=== PATIENT | female | born 1990 | race Caucasian/White ===

== ENCOUNTER 2018-08-18 15:01 | Emergency (ER) | payer OTHER ==
[2018-08-18 15:37] LABS: BASOPHILS # (AUTO) 0.1 10^3/uL (0.0-0.1); BASOPHILS % (AUTO) 0.8 %; EOSINOPHILS # (AUTO) 0.2 10^3/uL (0.0-0.7); EOSINOPHILS % (AUTO) 3.2 %; LYMPHOCYTES # (AUTO) 2.5 10^3/uL (1.5-3.5); LYMPHOCYTES % (AUTO) 34.6 %; MEAN CORPUSCULAR HEMOGLOBIN 30.8 pg (27.0-31.0); MEAN CORPUSCULAR HGB CONC 33.2 g/dL (32.0-36.0); MEAN CORPUSCULAR VOLUME 92.8 fL (81.0-99.0); MEAN PLATELET VOLUME 8.9 fL (7.9-10.8); MONOCYTES # (AUTO) 0.6 10^3/uL (0.0-1.0); MONOCYTES % (AUTO) 8.8 %; NEUTROPHILS # (AUTO) 3.7 10^3/uL (1.5-6.6); NEUTROPHILS % (AUTO) 52.6 %; PLT - PLATELET COUNT 211 10^3/uL (130-450); RED BLOOD COUNT 4.56 10^6/uL (4.20-5.40); RED CELL DISTRIBUTION WIDTH 13.4 % (12.0-15.0); WHITE BLOOD COUNT 7.1 x10^3/uL (4.8-10.8)
[2018-08-18 15:50] LABS: ALBUMIN 4.5 g/dL (3.2-5.5); ALBUMIN/GLOBULIN RATIO 1.5 (1.0-2.2); BILIRUBIN,TOTAL 0.3 mg/dL (0.2-1.0); CALCIUM 9.1 mg/dL (8.5-10.3); CREATININE 0.6 mg/dL (0.4-1.0); TOTAL PROTEIN 7.5 g/dL (6.7-8.2)
[2018-08-18 15:55] LABS: BILIRUBIN,URINE NEGATIVE (NEGATIVE); GLUCOSE, URINE (UA) NEGATIVE (NEGATIVE); KETONES,URINE (UA) TRACE mg/dL (NEGATIVE); LEUKOCYTE ESTERASE, URINE NEGATIVE (NEGATIVE); NITRITE,URINE NEGATIVE (NEGATIVE); OCCULT BLOOD,URINE NEGATIVE (NEGATIVE); PH,URINE 7.5 PH (5.0-7.5); PROTEIN,URINE NEGATIVE (NEGATIVE); UROBILINOGEN,URINE 0.2 (NORMAL) E.U./dL (NORMAL)
[2018-08-18 15:58] LABS: CLARITY,URINE CLEAR (CLEAR); HCG UR QUAL POSITIVE
[2018-08-18 16:21] LABS: HCG,QUALITATIVE BLOOD POSITIVE
[2018-08-18] MEDS ORDERED: METOCLOPRAMIDE 10 MG/2 ML VIAL IVP STA (16:32)
[2018-08-18] MEDS ORDERED: SODIUM CHLORIDE 0.9% 1,000 ML IV ONE (16:32)
--- NOTE | 2018-08-18 16:34 | ED Physician Documentation ---
PD HPI ABD PAIN - Stated complaint Stated Complaint: N/V/D - Chief complaint Chief Complaint: Abd Pain - History obtained from History obtained from: Patient - History of Present Illness Timing - onset: Other (Last 5 days she has been vomiting, she had some diarrhea as well but that seems to be better now. She has had some diffuse abdominal pain. No blood from either end, no sick contacts or fevers. 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 She is unsure when her last menses was.) Review of Systems Ten Systems: 10 systems reviewed and negative Constitutional: denies: Fever, Chills Nose: denies: Rhinorrhea / runny nose, Congestion Cardiac: denies: Chest pain / pressure, Palpitations Respiratory: denies: Dyspnea, Cough PD PAST MEDICAL HISTORY - Present Medications Home Medications: Ambulatory Orders Medication Instructions Recorded Confirmed Butalb/Acetaminophen/Caffeine 1 each PO 08/18/18 [Fioricet 50-300-40 mg Capsule] Metoclopramide [Reglan] 10 mg PO Q6H PRN #20 tablet 08/18/18 - Allergies Allergies/Adverse Reactions: Allergies Allergy/AdvReac Type Severity Reaction Status Date / Time No Known Drug Allergies Allergy Verified 08/18/18 15:06 PD ED PE NORMAL - Vitals Vital signs reviewed: Yes - General General: Alert and oriented X 3, No acute distress - HEENT HEENT: PERRL, EOMI - Neck Neck: Supple, no meningeal sign, No bony TTP - Cardiac Cardiac: RRR, No murmur - Respiratory Respiratory: No respiratory distress, Clear bilaterally - Abdomen Abdomen: Normal bowel sounds, Soft, Non tender - Back Back: No CVA TTP, No spinal TTP - Derm Derm: Normal color, Warm and dry - Extremities Extremities: No edema, No calf tenderness / cord - Neuro Neuro: Alert and oriented X 3, Normal speech Results - Vitals Vitals: Vital Signs - 24 hr 08/18/18 15:03 Temperature 36.3 C L Heart Rate 78 Respiratory 20 Rate Blood Pressure 128/88 H O2 Saturation 99 Oxygen O2 Source Room air - Labs Labs: Laboratory Tests 08/18/18 08/18/18 08/18/18 15:30 15:32 15:32 WBC 7.1 RBC 4.56 Hgb 14.0 Hct 42.3 MCV 92.8 MCH 30.8 MCHC 33.2 RDW 13.4 Plt Count 211 MPV 8.9 Neut # (Auto) 3.7 Lymph # (Auto) 2.5 [place] # (Auto) 0.6 Eos # (Auto) 0.2 Baso # (Auto) 0.1 Absolute Nucleated RBC 0.00 Nucleated RBC % 0.0 Sodium 136 Potassium 3.9 Chloride 104 Carbon Dioxide 25 Anion Gap 7.0 BUN 5 L Creatinine 0.6 Estimated GFR (MDRD) 120 Glucose 99 Calcium 9.1 Total Bilirubin 0.3 AST 20 ALT 25 Alkaline Phosphatase 59 Total Protein 7.5 Albumin 4.5 Globulin 3.0 Albumin/Globulin Ratio 1.5 Lipase 32 Serum HCG, Qual HCG, Quant Urine Color YELLOW Urine Clarity CLEAR Urine pH 7.5 Ur Specific [place] 1.015 Urine Protein NEGATIVE Urine Glucose (UA) NEGATIVE Urine Ketones TRACE Urine Occult Blood NEGATIVE Urine Nitrite NEGATIVE Urine Bilirubin NEGATIVE Urine Urobilinogen 0.2 (NORMAL) Ur Leukocyte Esterase NEGATIVE Ur Microscopic Review NOT INDICATED Urine Culture Comments NOT INDICATED Urine HCG, Qual POSITIVE 08/18/18 08/18/18 15:32 15:32 WBC RBC Hgb Hct MCV MCH MCHC RDW Plt Count MPV Neut # (Auto) Lymph # (Auto) [place] # (Auto) Eos # (Auto) Baso # (Auto) Absolute Nucleated RBC Nucleated RBC % Sodium Potassium Chloride Carbon Dioxide Anion Gap BUN Creatinine Estimated GFR (MDRD) Glucose Calcium Total Bilirubin AST ALT Alkaline Phosphatase Total Protein Albumin Globulin Albumin/Globulin Ratio Lipase Serum HCG, Qual POSITIVE HCG, Quant 8473.00 Urine Color Urine Clarity Urine pH Ur Specific [place] Urine Protein Urine Glucose (UA) Urine Ketones Urine Occult Blood Urine Nitrite Urine Bilirubin Urine Urobilinogen Ur Leukocyte Esterase Ur Microscopic Review Urine Culture Comments Urine HCG, Qual - Rads (name of study) OB sono Radiology: EMP read contemporaneously (Early IUP without visible cardiac activity) PD MEDICAL DECISION MAKING - ED course ED course: 28-year-old woman presents with vomiting in surprise early . No evidence of ectopic . Results of labs were discussed with them. Need for repeat ultrasonography was also discussed. Departure - Departure Disposition: 01 Home, Self Care Clinical Impression: Vomiting Qualifiers: Vomiting type: unspecified Vomiting Intractability: non-intractable Nausea presence: with nausea Qualified Code(s): R11.2 - Nausea with vomiting, unspecified Abdominal pain Qualifiers: Abdominal location: lower abdomen, unspecified Qualified Code(s): R10.30 - Lower abdominal pain, unspecified Qualifiers: Weeks of gestation: less than 8 weeks Qualified Code(s): Z3A.01 - Less than 8 weeks gestation of Condition: Good Record reviewed to determine appropriate education?: Yes Instructions: ED Care, ED Preg Morning Sickness Prescriptions: Metoclopramide [Reglan] 10 mg PO Q6H PRN #20 tablet PRN Reason: Nausea / Vomiting Comments: As discussed, I recommend repeat ultrasonography in about 2 weeks to assess the . Follow-up with your OB for this. Take a vitamin daily. Return for new or worsening symptoms.
--- NOTE | 2018-08-18 18:17 | Ultrasound Report ---
Reason: pelvic pain, preg Procedure Date: 08/18/2018 Accession Number: [id number] / [id number] Procedure: US - OB First Trimester CPT Code: FULL RESULT: EXAM: FIRST TRIMESTER OBSTETRIC ULTRASOUND (Less than 11 weeks) EXAM DATE: 08/18/2018 05:53 PM. CLINICAL HISTORY: Pelvic pain, preg. LMP: Unknown. COMPARISONS: None. TECHNIQUE: Transabdominal and transvaginal ultrasound examination with static image documentation. CLINICAL DATES: Unknown ASSESSMENT: Gestational Sac: Single intrauterine. Mean gestational sac diameter: 7.7 mm = 4 weeks 5 days. Gestational sac appears irregular. Embryo: CRL (crown-rump length) 5.8 mm = 6 weeks 3 days. Cardiac activity: Not visualized. Yolk sac: Not visualized. Amniotic fluid: Not accurately assessed at this gestational age. Early placenta: Not visible at this gestational age. Other: No perigestational fluid collection demonstrated. MATERNAL STRUCTURES: Uterus: Anteverted. Unremarkable. Cervix: Closed. Right Ovary/Adnexa: The ovary measures 3.3 x 1.9 x 1.8 cm, volume 5.9 cc. Unremarkable. Left Ovary/Adnexa: The ovary measures 2.3 x 1.1 x 1.5 cm, volume 2.0 cc. Unremarkable. Free Fluid: None. Other: None. IMPRESSION: 1. Intrauterine gestational sac and pole. No cardiac activity visualized at this time. Gestational sac appears irregular. The differential diagnosis would include a very early viable intrauterine and blighted ovum. Follow-up ultrasound may be of utility to reevaluate. RADIA
[2018-08-18 19:31] VITALS: BP 135/86
== END 2018-08-18 19:33 | disposition home or self-care (01) ==
LOC: ED 15:01
DX: O21.9 Vomiting of pregnancy, unspecified (principal); Z3A.01 Less than 8 weeks gestation of pregnancy; O26.891 Other specified pregnancy related conditions, first trimester; R10.30 Lower abdominal pain, unspecified
CPT/HCPCS: 36415; 76801; 76817; 80053; 81003; 81025; 83690; 84702; 84703; 85025; 99283; J2765; 81001; 87086

== ENCOUNTER 2019-03-12 09:30 | Outpatient (CLI) | payer OTHER ==
--- NOTE | 2019-03-12 16:39 | MRI Report ---
Reason: DISORDER OF PITUITARY GLAND,UNSPECIFIED Procedure Date: 03/12/2019 Accession Number: [id number] / [id number] Procedure: MRI - Brain W/O CPT Code: FULL RESULT: EXAM: MRI BRAIN WITHOUT CONTRAST EXAM DATE: 03/12/2019 10:12 AM. CLINICAL HISTORY: Disorder of pituitary gland, unspecified. COMPARISON: None available at the time of this dictation. TECHNIQUE: Multiplanar, multisequence T1-weighted and fluid-sensitive MR sequences of the brain were performed. Sequences optimized for routine evaluation. Other: None. IV Contrast: None. FINDINGS: In the right aspect of the pituitary gland there is a 6 x 6 mm anterior posterior x craniocaudal T1 and T2 hyperintense mass. This measures roughly 5 mm anterior posterior. There is no deviation of the pituitary stalk. Ventricles and sulci are within normal limits. No extra-axial fluid collection is seen. No abnormal T2 or FLAIR hyperintensities are identified in the infratentorial brain. There is FLAIR hyperintense signal in the periventricular white matter adjacent to the posterior aspect of the right lateral ventricle body and extending into the periventricular white matter best seen on image 15 and image 14 of series 601. No cerebellar tonsillar ectopia is present. No suprasellar mass is present. No abnormal restricted diffusion signal is identified in the brain parenchyma. IMPRESSION: 1. There is a T1 hyperintense 6 mm lesion in the right pituitary gland which might well reflect a proteinaceous or hemorrhagic microadenoma given the patient's history of adenoma. 2. No suprasellar mass is present. Pituitary stalk is not thickened. 3. Signal abnormality is seen adjacent to the posterior right lateral ventricle body extending in the periventricular white matter. This is nonspecific and could reflect small vessel ischemic change, demyelination, or the sequela of a prior infectious/inflammatory process. RADIA
== END 2019-03-12 09:31 | disposition home or self-care (01) ==
LOC: DI 09:30
PROVIDERS: ATTEND Obstetrics & Gynecology
DX: E23.7 Disorder of pituitary gland, unspecified (principal)
CPT/HCPCS: 70551

== ENCOUNTER 2019-05-31 00:39 | Observation (INO) | payer OTHER ==
--- NOTE | 2019-05-31 01:01 | ED Physician Documentation ---
PD HPI ABD PAIN - Stated complaint Stated Complaint: ABD PX - Chief complaint Chief Complaint: Abd Pain - History obtained from History obtained from: Patient - History of Present Illness Timing - onset: How many hours ago (1-2) Timing - duration: Hours Timing - details: Abrupt onset, Still present Quality: Aching, Sharp, Pain Location: RUQ Radiation: Upper back Improved by: No: Eating Worsened by: Eating (She has been having to eat bland and low-fat diet for the last couple of months as any fatty food will precipitate pain. She had been doing well for a couple of weeks and then had some shrimp with butter for dinner and subsequently is having severe right upper quadrant abdominal pain started an hour or so ago. She has had a few prior similar episodes related to fatty food initially in the last month or so of her . She delivered just a month ago. She has been breast-feeding and has been able to stay well-hydrated and need to nonfat diet. However she still has had several episodes of right upper quadrant pain lasting minutes to an hour or so. She had one severe episode that lasted about a day and finally improved with pain medicine. Today's episode was worse than prior episodes.) Associated symptoms: Nausea, Loss of appetite. No: Fever, Diarrhea, Constipation Recently seen: Clinic (She was seen by her primary care provider because of these pain episodes and had ultrasound showing gallstones. She is getting referral to surgery but this is still in process. She has been having intermittent pains in that area to milder degrees and has had a few episodes of worse pain after eating.) Review of Systems Constitutional: denies: Fever, Myalgias Nose: denies: Rhinorrhea / runny nose, Congestion Throat: denies: Sore throat Respiratory: denies: Cough GI: reports: Abdominal Pain, Nausea. denies: Abdominal Swelling, Vomiting, Diarrhea : denies: Dysuria, Frequency Skin: denies: Rash, Lesions Neurologic: denies: Generalized weakness, Near syncope PD PAST MEDICAL HISTORY - Past Medical History Cardiovascular: None Respiratory: None Neuro: None Endocrine/Autoimmune: None [employer] WORK[employer]: Other (She is one month with ) - Past Surgical History Past Surgical History: Yes HEENT: Other - Present Medications Home Medications: Ambulatory Orders Medication Instructions Recorded Confirmed Ondansetron HCl [Zofran] 4 mg PO Q8HR PRN 05/31/19 05/31/19 - Allergies Allergies/Adverse Reactions: Allergies Allergy/AdvReac Type Severity Reaction Status Date / Time No Known Drug Allergies Allergy Verified 05/31/19 00:45 - Social History Does the pt smoke?: Yes Smoking Status: Current every day smoker Does the pt drink ETOH?: No Does the pt have substance abuse?: No - Immunizations Immunizations are current?: Yes - POLST Patient has POLST: No PD ED PE NORMAL - Vitals Vital signs reviewed: Yes - General General: Alert and oriented X 3, Well developed/nourished, Other (She appears considerably uncomfortable and in pain. She is appearing nauseated.) - HEENT HEENT: Pharynx benign - Neck Neck: Supple, no meningeal sign, No adenopathy - Cardiac Cardiac: RRR, No murmur - Respiratory Respiratory: Clear bilaterally - Abdomen Abdomen: Non distended, Other (The patient is considerably tender to palpation and percussion and some mild rebound in the right upper quadrant and epigastric area. Lower abdomen is nontender. She has well-healing scar without any signs of infection.). No: Normal bowel sounds (diminished) - Female Female : Deferred - Rectal Rectal: Deferred - Back Back: No CVA TTP - Derm Derm: Normal color, Warm and dry - Extremities Extremities: Normal ROM s pain, No edema, No calf tenderness / cord - Neuro Neuro: Alert and oriented X 3, No motor deficit, Normal speech Eye Opening: Spontaneous Motor: Obeys Commands Verbal: Oriented GCS Score: 15 - Psych Psych: Normal mood Results - Vitals Vitals: Vital Signs - 24 hr 05/31/19 05/31/19 05/31/19 00:43 01:29 01:52 Temperature 37.2 C Heart Rate 73 73 76 Respiratory 20 16 16 Rate Blood Pressure 132/91 H 125/99 H 130/100 H O2 Saturation 100 95 98 05/31/19 05/31/19 02:23 03:24 Temperature Heart Rate 68 75 Respiratory 18 18 Rate Blood Pressure 122/68 131/97 H O2 Saturation 98 98 Oxygen O2 Source Room air - Labs Labs: Laboratory Tests 05/31/19 05/31/19 00:54 00:54 WBC 6.3 RBC 3.96 L Hgb 11.6 L Hct 35.7 L MCV 90.2 MCH 29.3 MCHC 32.5 RDW 12.5 Plt Count 259 MPV 10.9 H Neut # (Auto) 2.6 Lymph # (Auto) 2.7 [place] # (Auto) 0.7 Eos # (Auto) 0.3 Baso # (Auto) 0.0 Absolute Nucleated RBC 0.00 Nucleated RBC % 0.0 Sodium 145 Potassium 3.2 L Chloride 107 Carbon Dioxide 27 Anion Gap 11.0 BUN 10 Creatinine 0.8 Estimated GFR (MDRD) 86 L Glucose 96 Calcium 9.6 Total Bilirubin < 0.2 L AST 16 ALT 16 Alkaline Phosphatase 104 Total Protein 7.1 Albumin 4.0 Globulin 3.1 Albumin/Globulin Ratio 1.3 Lipase 32 - Rads (name of study) abd U/S Radiology: Prelim report reviewed (Gallstones are present. The common bile duct is normal. There is no wall thickening or pericholecystic fluid.), See rad report PD MEDICAL DECISION MAKING - ED course Complexity details: reviewed results, re-evaluated patient (She is improved with pain medicine. Abdominal exam is still quite tender in the right upper quadrant. There is no lab or ultrasound indication of acute infectious cholecystitis. However she has had episodes of pain and currently has an acute biliary colic with persistent pain and tenderness. I will talk with Dr. Fuentes who is on-call for surgery.), considered differential (Patient has symptoms very consistent with a gallbladder cause. She has recently diagnosed gallstones. She has been having a pattern of pain caused by eating and particularly any fatty foods. She has had several episodes of severe pain of minutes duration at times. She had one episode that was over a day. Her primary care is referring her to surgery for cholecystectomy. Today's episode was worse pain that she has had previously. We will get labs and ultrasound to see if there is acute cholecystitis at this point.), d/w patient, d/w transformation consultant Departure - Departure Clinical Impression: Biliary colic Abdominal pain Qualifiers: Abdominal location: right upper quadrant Qualified Code(s): R10.11 - Right upper quadrant pain Condition: Stable Record reviewed to determine appropriate education?: Yes
[2019-05-31 01:02] LABS: BASOPHILS % (AUTO) 0.3 %; EOSINOPHILS # (AUTO) 0.3 10^3/uL (0.0-0.7); EOSINOPHILS % (AUTO) 4.3 %; HGB - HEMOGLOBIN 11.6 g/dL (12.0-16.0); LYMPHOCYTES # (AUTO) 2.7 10^3/uL (1.5-3.5); MEAN CORPUSCULAR HEMOGLOBIN 29.3 pg (27.0-31.0); MEAN CORPUSCULAR HGB CONC 32.5 g/dL (32.0-36.0); MEAN CORPUSCULAR VOLUME 90.2 fL (81.0-99.0); MEAN PLATELET VOLUME 10.9 fL (7.9-10.8); MONOCYTES # (AUTO) 0.7 10^3/uL (0.0-1.0); MONOCYTES % (AUTO) 11.3 %; NEUTROPHILS # (AUTO) 2.6 10^3/uL (1.5-6.6); NEUTROPHILS % (AUTO) 40.8 %; PLT - PLATELET COUNT 259 10^3/uL (130-450); RED BLOOD COUNT 3.96 10^6/uL (4.20-5.40); RED CELL DISTRIBUTION WIDTH 12.5 % (12.0-15.0); WHITE BLOOD COUNT 6.3 x10^3/uL (4.8-10.8)
[2019-05-31 01:13] LABS: ALBUMIN/GLOBULIN RATIO 1.3 (1.0-2.2); ALKALINE PHOSPHATASE 104 IU/L (42-121); ALT ALANINE AMINOTRANSFERASE 16 IU/L (10-60); AST ASPARTATE AMINOTRANSFERASE 16 IU/L (10-42); BILIRUBIN,TOTAL < 0.2 mg/dL (0.2-1.0); BUN - BLOOD UREA NITROGEN 10 mg/dL (6-20); CALCIUM 9.6 mg/dL (8.5-10.3); CARBON DIOXIDE - CO2 27 mmol/L (21-32); CHLORIDE 107 mmol/L (101-111); CREATININE 0.8 mg/dL (0.4-1.0); GFR - MDRD 86 (>89); GLUCOSE 96 mg/dL (70-100); LIPASE 32 U/L (22-51); SODIUM 145 mmol/L (135-145); TOTAL PROTEIN 7.1 g/dL (6.7-8.2)
[2019-05-31] MEDS ORDERED: KETOROLAC 15 MG/ML VIAL IVP STA (01:17)
[2019-05-31] MEDS ORDERED: ONDANSETRON 4 MG/2 ML VIAL IVP STA (01:17)
[2019-05-31] MEDS ORDERED: HYDROmorphone 1 MG/ML CARPUJECT IVP STA ×2 (01:17→02:29)
[2019-05-31] MEDS ORDERED: SODIUM CHLORIDE 0.9% 1,000 ML IV ONE (01:17)
[2019-05-31] MEDS ORDERED: ACETAMINOPHEN 1,000 MG/100 ML 100 ML IV STA (01:18)
--- NOTE | 2019-05-31 02:40 | Ultrasound Report ---
Reason: RUQ pain; known stones; ? cholecystitis Procedure Date: 05/31/2019 Accession Number: [id number] / [id number] Procedure: US - Abdomen Limited CPT Code: FULL RESULT: EXAM: ABDOMEN ULTRASOUND LIMITED, RUQ EXAM DATE: 05/31/2019 02:31 AM. CLINICAL HISTORY: RUQ pain; known stones; ? cholecystitis. COMPARISON: None. TECHNIQUE: Real-time scanning was performed with static images obtained. FINDINGS: Liver: Heterogeneous mildly echogenic liver measuring 18.3 cm. Main portal vein flow: Hepatopetal. Gallbladder: Cholelithiasis. No bladder wall thickening or pericholecystic fluid. Gallbladder wall measures 1.9 mm. Unreliable sonographic Danielson's sign due to medication. Biliary System: CBD measures 6.2 mm. No intrahepatic or extrahepatic ductal dilatation. Other: Unremarkable right kidney. No hydronephrosis. IMPRESSION: 1. Cholelithiasis. No gallbladder wall thickening or pericholecystic fluid to suggest acute cholecystitis. 2. Borderline dilation of common bile duct measuring 6.2 mm. In the setting of cholelithiasis, choledocholithiasis is a consideration. Recommend clinical correlation and correlation with laboratory values. Follow-up ultrasound or MRCP can be considered for further evaluation as clinically indicated. 3. Mildly echogenic liver suggestive of fatty infiltration. RADIA
[2019-05-31] MEDS ORDERED: LACTATED RINGERS 1,000 ML IV STA ×2 (03:14→07:40)
[2019-05-31] MEDS: HYDROmorphone 1 MG/ML CARPUJECT IVP PRN ×6 (03:26→16:04)
[2019-05-31] MEDS ORDERED: LACTATED RINGERS 1,000 ML IV ONE ×2 (03:41→16:17)
[2019-05-31] MEDS ORDERED: SODIUM CHLORIDE FLUSH 0.9% 10 ML SYRINGE IVP PRN (08:34)
[2019-05-31] MEDS ORDERED: ACETAMINOPHEN 1,000 MG/100 ML 100 ML IV PRN (08:34)
[2019-05-31] MEDS ORDERED: ONDANSETRON 4 MG/2 ML VIAL IVP PRN (08:38)
[2019-05-31] MEDS ORDERED: DEXTROSE 5%-0.45% NACL 1,000 ML IV SCH (09:00)
[2019-05-31] MEDS: PIPERACILLIN/TAZOBACTAM 3.375 GM in SODIUM CHLORIDE 0.9% MINIBAG 100 ML IV SCH ×2 (10:00→19:44)
[2019-05-31] MEDS: SODIUM CHLORIDE FLUSH 0.9% 10 ML SYRINGE IVP SCH ×2 (10:17→16:04)
--- NOTE | 2019-05-31 12:08 | ANESTHESIA ---
Pre-Anesthesia VS, & Labs - Diagnosis cholelithiasis - Procedure laparoscopic cholecystectomy Vital Signs: Temp Pulse Resp BP Pulse Ox 36.3 C L 83 17 128/90 H 99 05/31/19 09:35 05/31/19 09:35 05/31/19 09:35 05/31/19 09:35 05/31/19 09:35 Height 5 ft 2 in Weight (kg) 97.976 kg Body Mass Index 39.4 - NPO >8 hours - Is Patient ?: No, Not Applicable (delivered one month ago) - Lab Results Current Lab Results: Laboratory Tests 05/31/19 00:54: Sodium 145, Potassium 3.2 L, Chloride 107, Carbon Dioxide 27, Anion Gap 11.0, BUN 10, Creatinine 0.8, Estimated GFR (MDRD) 86 L, Glucose 96, Calcium 9.6, Total Bilirubin < 0.2 L, AST 16, ALT 16, Alkaline Phosphatase 104, Total Protein 7.1, Albumin 4.0, Globulin 3.1, Albumin/Globulin Ratio 1.3, Lipase 32 05/31/19 00:54: WBC 6.3, RBC 3.96 L, Hgb 11.6 L, Hct 35.7 L, MCV 90.2, MCH 29.3, MCHC 32.5, RDW 12.5, Plt Count 259, MPV 10.9 H, Neut # (Auto) 2.6, Lymph # ( Auto) 2.7, [place] # (Auto) 0.7, Eos # (Auto) 0.3, Baso # (Auto) 0.0, Absolute Nucleated RBC 0.00, Nucleated RBC % 0.0 Fish Bones: 05/31/19 00:54 05/31/19 00:54 Home Medications and Allergies Home Medications: Ambulatory Orders Ondansetron HCl [Zofran] 4 mg PO Q8HR PRN 05/31/19 Active Medications Hydromorphone HCl (Dilaudid Inj Carp) 1 mg IVP Q2H PRN PRN Reason: PAIN Last Admin: 05/31/19 10:00 Dose: 1 mg Dextrose/Sodium Chloride (D5.45ns) 1,000 mls @ 100 mls/hr IV .Q10H JULIUS Last Infusion: 05/31/19 12:00 Dose: 100 mls/hr Acetaminophen (Ofirmev) 100 mls @ 400 mls/hr IV Q6HR PRN PRN Reason: PAIN Piperacillin Sod/Tazobactam (Sod 3.375 gm/ Sodium Chloride) 100 mls @ 200 mls/hr IV Q6H [facility] Last Infusion: 05/31/19 10:30 Dose: Infused Ondansetron HCl (Zofran Inj) 4 mg IVP Q6H PRN PRN Reason: Nausea / Vomiting Sodium Chloride (Normal Saline Flush 0.9%) 10 ml IVP 0100,0900,1700 [facility] Last Admin: 05/31/19 10:17 Dose: 10 ml Sodium Chloride (Normal Saline Flush 0.9%) 10 ml IVP PRN PRN PRN Reason: NEEDED PER PROVIDER ORDERS Ondansetron HCl [Zofran] 4 mg PO Q8HR PRN 05/31/19 Allergies/Adverse Reactions: Allergies Allergy/AdvReac Type Severity Reaction Status Date / Time No Known Drug Allergies Allergy Verified 05/31/19 00:45 Anes History & Medical History - Anesthetic History Anesthesia Complications: reports: Post-Operative Nausea/Vomiting - Medical History Cardiovascular: reports: None Pulmonary: reports: None Neuro: reports: None Endocrine/Autoimmune: reports: None Smoking Status: Former smoker Other Past Medical History: Acoustic Neuroma - Surgical History Eyes Ears Nose Throat (EENT): Other ( acoustic neuroma) Gynecologic: section Exam General: Alert Dental: WNL Mouth Opening: Greater than 4 Fingerbreadths Neck Mobility: Normal Mallampati classification: I Thyromental Distance: greater than 6 cm Respiratory: Lungs clear Cardiovascular: Regular rate, Normal S1, Normal S2 Plan Anesthesia Type: General Consent for Procedure(s) Verified and Reviewed: Yes Code Status: Attempt Resuscitation ASA classification: 2-Mild systemic disease Is this case an emergency?: No
[2019-05-31] MEDS ORDERED: POTASSIUM CHLOR 10 MEQ/100 ML 10 MEQ/100 ML BAG IV ONE (12:31)
[2019-05-31] MEDS ORDERED: SCOPOLAMINE PATCH TOP SCH (13:00)
[2019-05-31 13:46] LABS: HCG UR QUAL NEGATIVE
[2019-05-31] MEDS ORDERED: LIDOCAINE-MPF 1% 30 ML VIAL ONE (16:04)
[2019-05-31] MEDS ORDERED: BUPIVACAINE 0.5%-EPI 1:200000 PF 30 ML VIAL ONE (16:04)
--- NOTE | 2019-05-31 16:11 | HISTORY & PHYSICAL EXAMINATION ---
HPI - Admitted From Admitted from: ED - History Obtained From Records Reviewed: RN notes reviewed, Old records reviewed History obtained from: Patient, Family Exam limitations: No limitations - History of Present Illness Pain/Problem Location Description: Right upper quadrant pain Severity at the worst: reports: Severe Pain Quality: reports: Sharp, Aching, Cramping Context-Pain started w/: reports: Eating, Rest Timing: reports: Abrupt onset, Constant Duration: reports: Hours: (12) Improved with: reports: Nothing Worsened by: reports: Inspiration, Movement, Palpation Associated symptoms: reports: Nausea HPI Comment/Other: Very pleasant and generally healthy 28 year old lady who delivered a healthy baby 1 month ago via . She reports that she has had multiple episodes of right upper quadrant pain in the past and especially during her . She is known she has gallstones but was trying to hold out until after delivery. When she delivered the baby the pain seemed to get better but she has been having frequent mild right upper quadrant pain. Last evening, she developed severe abdominal pain that did not subside. She presented to the emergency room and was seen and evaluated there by Dr. Pierce.She was found to have normal labs but multiple gallstones visualized on ultrasound. Her pain was extremely difficult to control and she required multiple doses of hydromorphone. They were not able to get her to a comfortable level of pain so that she might be discharged and so she was admitted for observation and consideration of jimena cystectomy later today.Maryuri denies any episodes of her skin having turned yellow or yellowing of the eyes. She has not really had any diarrhea. Its primarily been the right upper quadrant pain and has not been associated with fever. She has had periodic, not infrequent, nausea. 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: section HEENT: positive: Other Social & Family Hx - Social History Does the pt smoke?: Yes Smoking Status: Current every day smoker Does the pt drink ETOH?: No Does the pt have substance abuse?: No - POLST Patient has POLST: No Meds/Allgy - Home Medications Home Medications: Ambulatory Orders Medication Instructions Recorded Confirmed Pnv No.121/Iron/Folic Acid 1 each PO DAILY 05/31/19 05/31/19 [ Multivitamin Tablet] - Allergies Allergies/Adverse Reactions: Allergies Allergy/AdvReac Type Severity Reaction Status Date / Time No Known Drug Allergies Allergy Verified 05/31/19 00:45 Review of Systems - Constitutional Constitutional: reports: Fatigue - Gastrointestinal Gastrointestinal: reports: Abdominal pain, Nausea - All Other Systems All Other Systems: reports: Reviewed and negative Exam - Vital Signs Reviewed Vital Signs: Yes Vital Signs: Vital Signs x48h Temp Pulse Pulse Pulse Resp BP BP 05/31/19 15:54 36.7 C 79 16 128/91 H 05/31/19 12:53 36.4 C L 71 14 134/96 H 05/31/19 09:35 36.3 C L 83 17 05/31/19 08:57 83 18 125/84 H BP Pulse Ox 05/31/19 15:54 98 05/31/19 12:53 98 05/31/19 09:35 128/90 H 99 05/31/19 08:57 97 - Physical Exam General Appearance: positive: Moderate distress Eyes Bilateral: positive: Normal inspection, PERRL, EOMI, No scleral icterus ENT: positive: ENT inspection nml, Pharynx nml, No signs of dehydration Neck: positive: Nml inspection, Thyroid nml, No JVD, Trachea midline Respiratory: positive: Chest non-tender, No respiratory distress, Breath sounds nml Cardiovascular: positive: Regular rate & rhythm, No murmur Peripheral Pulses: positive: 2+ Abdomen: positive: Nml bowel sounds, Tenderness, Guarding Back: positive: CVA tenderness (R). negative: CVA tenderness (L) Skin: positive: Color nml, No rash, Warm Extremities: positive: Non-tender, Full ROM, Nml appearance Neurologic/Psychiatric: positive: Oriented x3, CN's nml (2-12) Results - Lab Results Fish Bones: 05/31/19 00:54 05/31/19 00:54 Other Lab Results: Lab Results x24hrs 05/31/19 05/31/19 05/31/19 Range/Units 12:45 00:54 00:54 WBC 6.3 (4.8-10.8) x10^3/uL RBC 3.96 L (4.20-5.40) 10^6/uL Hgb 11.6 L (12.0-16.0) g/dL Hct 35.7 L (37.0-47.0) % MCV 90.2 (81.0-99.0) fL MCH 29.3 (27.0-31.0) pg MCHC 32.5 (32.0-36.0) g/dL RDW 12.5 (12.0-15.0) % Plt Count 259 (130-450) 10^3/uL MPV 10.9 H (7.9-10.8) fL Neut # (Auto) 2.6 (1.5-6.6) 10^3/uL Lymph # (Auto) 2.7 (1.5-3.5) 10^3/uL [place] # (Auto) 0.7 (0.0-1.0) 10^3/uL Eos # (Auto) 0.3 (0.0-0.7) 10^3/uL Baso # (Auto) 0.0 (0.0-0.1) 10^3/uL Absolute Nucleated RBC 0.00 x10^3/uL Nucleated RBC % 0.0 /100WBC Sodium 145 (135-145) mmol/L Potassium 3.2 L (3.5-5.0) mmol/L Chloride 107 (101-111) mmol/L Carbon Dioxide 27 (21-32) mmol/L Anion Gap 11.0 (6-13) BUN 10 (6-20) mg/dL Creatinine 0.8 (0.4-1.0) mg/dL Estimated GFR (MDRD) 86 L (>89) Glucose 96 (70-100) mg/dL Calcium 9.6 (8.5-10.3) mg/dL Total Bilirubin < 0.2 L (0.2-1.0) mg/dL AST 16 (10-42) IU/L ALT 16 (10-60) IU/L Alkaline Phosphatase 104 (42-121) IU/L Total Protein 7.1 (6.7-8.2) g/dL Albumin 4.0 (3.2-5.5) g/dL Globulin 3.1 (2.1-4.2) g/dL Albumin/Globulin Ratio 1.3 (1.0-2.2) Lipase 32 (22-51) U/L Ur Specific Davis 1.015 (1.002-1.030) Urine HCG, Qual NEGATIVE - Diagnostic Imaging Results Diagnostic Imaging Results Comments: Cholelithiasis with a borderline enlarged common bile duct. Impression/Plan - Problem List Problem List: Cholelithiasis and uncontrolled biliary colic. I have recommended laparoscopic cholecystectomy. We have discussed the risks and benefits of the procedure and the patient has expressed a desire to complete it today. Plans have been made for the OR this afternoon.
[2019-05-31] MEDS ORDERED: SCOPOLAMINE PATCH TOP ONE (16:29)
--- NOTE | 2019-05-31 17:12 | OPERATIVE REPORT ---
Operative Report - General Admit Date: 05/31/19 Planned Procedure: Laparoscopic cholecystectomy Pre-Op Diagnosis: Acute cholecystitis and cholelithiasis Procedure Performed: Laparoscopic cholecystectomy Post Op Diagnosis: Same - Procedure Note Primary Surgeon: Wood Anesthesia Provider: PERRI Palma Anesthesia Technique: General ET tube, Local Estimated Blood Loss (mL): 25 Findings: Acute cholecystitis with an edematous gallbladder Complications: None apparent - Other Other Information/Narrative: After obtaining informed consent, the patient is brought to the operating room and placed in the supine position on the operating table. Following successful induction of general endotracheal anesthesia, appropriate padding of all bony prominences, and placement of appropriate monitors, the abdomen was prepped and draped in the standard surgical fashion. A timeout was held per MTOAP protocol. All elements of the surgical safety checklist were observed in the preop, intraoperative, and postoperative timeframes. Following infiltration with local anesthetic to create a field block, an incision was created just inferior to the umbilicus and carried down through the skin and subcutaneous tissue to reveal the fascia below. 2-0 Vicryl sutures were placed on either side of the midline and the abdomen was entered under direct vision using a 15 blade scalpel. A 12 mm blunt Foster balloon trocar was placed in the abdominal cavity and it was insufflated to 15 mmHg pressure. The patient was placed in reverse Trendelenburg position with the left side rotated toward the floor. A 5 mm trocar was placed in the epigastrium and 2 more in the right upper quadrant again following infiltration with local anesthetic. We immediately visualized the gallbladder which was acutely edematous with omental adhesions. The fundus of the gallbladder was grasped with an Allis clamp and elevated over the dome of the liver. This revealed the region of the cholecysto hepatoduodenal ligament. Careful dissection was undertaken to reveal the fundus and neck of the gallbladder and then to define the cystic duct and cystic artery. The common duct was visualized as well. The cystic duct was clipped 3 times proximally once distally and divided. The cystic artery was addressed with hemoclips proximally and distally and divided. The gallbladder was then liberated from its bed in the liver using Bovie cautery. It was noted to be acutely edematous. It was placed in a endoscopic catchment bag and removed by the umbilical port with a camera in the epigastric position. The abdomen was checked for hemostasis. It was irrigated with 1 L of warm saline solution and aspirated free of all fluid and particulate matter. The trochars were then removed under direct vision. The abdomen was desufflated. The umbilical incision was closed with interrupted 0 Vicryl sutures and Monocryl stitches were placed in the skin. All sponge, needle, and instrument counts were correct at the conclusion of the case. The patient was allowed to awake from anesthesia without difficulty and taken to the postanesthesia care unit in good condition.
[2019-05-31] MEDS ORDERED: oxyCODONE 5 MG TABLET PO PRN (17:14)
[2019-05-31] MEDS: fentaNYL 100 MCG/2 ML VIAL ONE ×2 (17:32→17:37)
[2019-05-31 20:34] VITALS: BP 129/81
[2019-05-31] MEDS ORDERED: MIDAZOLAM 2 MG/2 ML VIAL IVP ONE (21:35)
[2019-05-31] MEDS ORDERED: PROPOFOL 200 MG/20 ML VIAL IVP ONE (21:35)
[2019-05-31] MEDS ORDERED: ACETAMINOPHEN 1,000 MG/100 ML 100 ML IV ONE (21:35)
[2019-05-31] MEDS ORDERED: LIDOCAINE-MPF 2% 5 ML VIAL IM ONE (21:35)
[2019-05-31] MEDS ORDERED: ROCURONIUM 50 MG/5 ML VIAL IVP ONE (21:35)
[2019-05-31] MEDS ORDERED: fentaNYL 100 MCG/2 ML VIAL IVP ONE (21:35)
[2019-05-31] MEDS ORDERED: DEXAMETHASONE 4 MG/ML VIAL IVP ONE (21:35)
== END 2019-05-31 21:36 | disposition home or self-care (01) ==
LOC: ED 00:39 → OBS 08:34
PROVIDERS: ADMIT Surgery; ATTEND Surgery
PROC: 0FT44ZZ Resection of Gallbladder, Percutaneous Endoscopic Approach (ICD-10-PCS; principal; 2019-05-31 15:15)
DX: O99.63 Diseases of the digestive system complicating the puerperium (principal); K80.20 Calculus of gallbladder without cholecystitis without obstruction; F17.200 Nicotine dependence, unspecified, uncomplicated; Z86.69 Personal history of other diseases of the nervous system and sense organs
CPT/HCPCS: 36415; 47562; 76705; 80053; 81025; 83690; 85025; 99284; 99285; A9270; G0378; J0131; J1170; J3490; J7120

== ENCOUNTER 2019-06-08 21:03 | Emergency (ER) | payer OTHER ==
[2019-06-08 21:08] VITALS: BP 146/109
[2019-06-08] MEDS ORDERED: LIDOCAINE 1% 2 ML VIAL MC ONE (21:45)
[2019-06-08] MEDS ORDERED: cefTRIAXone 1 GM VIAL IM STA (21:45)
--- NOTE | 2019-06-08 21:49 | ED Physician Documentation ---
History of Present Illness - Stated complaint Stated Complaint: POST OP PX - Chief complaint Chief Complaint: Abd Pain - History obtained from History obtained from: Patient - History of Present Illness Timing: Last night - Additonal information Additional information: 28 y/o female who had her gallbladder out on 05-31-2019 has developed redness around the right upper quadrant incision. There is some pain, no drainage mass or fluctuance and the area has increased in size over the day today. It appeared as redness around the incision last night and spreading erythema about 3cm round total. 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: section HEENT: Other - Present Medications Home Medications: Ambulatory Orders Medication Instructions Recorded Confirmed Ondansetron Odt [Zofran] 4 mg TL Q6H PRN #20 tablet 05/31/19 Pnv No.121/Iron/Folic Acid 1 each PO DAILY 05/31/19 05/31/19 [ Multivitamin Tablet] oxyCODONE/ACET 5/325 [Percocet 5 1 each PO ONCE PRN #20 tablet 05/31/19 mg/325 mg] Amox/Clav 875/125 [Augmentin] 1 each PO Q12H #14 tablet 06/08/19 - Allergies Allergies/Adverse Reactions: Allergies Allergy/AdvReac Type Severity Reaction Status Date / Time Iodinated Contrast Media Allergy Hives Verified 06/08/19 21:09 - Social History Does the pt smoke?: Yes Smoking Status: Current every day smoker Does the pt drink ETOH?: No Does the pt have substance abuse?: No - Immunizations Immunizations are current?: Yes - POLST Patient has POLST: No PD ED PE NORMAL - Vitals Vital signs reviewed: Yes (hypertensive) - General General: Alert and oriented X 3, No acute distress, Well developed/nourished - HEENT HEENT: Atraumatic, PERRL, EOMI - Respiratory Respiratory: No respiratory distress - Abdomen Abdomen: Soft, Non tender, Other (There are multiple recent surgical incisions all appearing well without inflamation except the right upper quadrant incision and this is peripherally erythematous mildly tenderne without mass or fluctuance and without drainage. This appears today to be a superficial wound infection. ) - Back Back: No CVA TTP, No spinal TTP - Derm Derm: Normal color, Warm and dry, No rash - Extremities Extremities: No deformity, No edema, No calf tenderness / cord - Neuro Neuro: Alert and oriented X 3, otolaryngology rep 2-12 intact, No motor deficit, No sensory deficit, Normal speech Eye Opening: Spontaneous Motor: Obeys Commands Verbal: Oriented GCS Score: 15 - Psych Psych: Normal mood, Normal affect Results - Vitals Vitals: Vital Signs - 24 hr 06/08/19 21:05 Temperature 36.3 C L Heart Rate 88 Respiratory 19 Rate Blood Pressure 146/109 H O2 Saturation 100 Oxygen O2 Source Room air PD MEDICAL DECISION MAKING - ED course Complexity details: reviewed old records, considered differential, d/w patient ED course: 28 y/o female 8 days post op from a jimena with a superficial wound infection that is cellulitic instead of abscess like. She is administered IM rocpehin and we will put her on some augmentin (both safe fore breast feeding) and expect improvement. She has follow up appointment with the surgeon in 4 days and I am expecting resolution. Departure - Departure Disposition: 01 Home, Self Care Clinical Impression: Superficial postoperative wound infection Condition: Stable Instructions: ED Wound Infec After Surgery Follow-Up: Maddi Hinds ARNP [Primary Care Provider] - [facility] Group] Prescriptions: Amox/Clav 875/125 [Augmentin] 1 each PO Q12H #14 tablet
== END 2019-06-08 22:11 | disposition home or self-care (01) ==
LOC: ED 21:03
DX: T81.41XA Infection following a procedure, superficial incisional surgical site, initial encounter (principal); L03.311 Cellulitis of abdominal wall; Y83.8 Other surgical procedures as the cause of abnormal reaction of the patient, or of later complication, without mention of misadventure at the time of the procedure; Z90.49 Acquired absence of other specified parts of digestive tract; F17.200 Nicotine dependence, unspecified, uncomplicated
CPT/HCPCS: 96372; 99283; 99284

== ENCOUNTER 2020-04-07 13:47 | Outpatient (CLI) | payer OTHER ==
--- NOTE | 2020-04-08 15:51 | Ultrasound Report ---
LIMITED ULTRASOUND OF RIGHT BREAST AND AXILLA: 04/07/2020 CLINICAL: Bloody nipple discharge right breast. No prior exams were available for comparison. Color flow and real-time ultrasound of the right breast retroareolar and axilla regions were performe d on the areas of interest. No discrete cystic or solid mass lesion identified in the right axilla or retroareolar region. IMPRESSION: INCOMPLETE: NEEDS ADDITIONAL IMAGING EVALUATION There is no abnormality seen in the right axilla to correspond with the tenderness in the right axill a, however, clinical followup is recommended. There is no abnormality seen in the right breast to correspond with the bloody discharge from the nip ple in the sub-areolar depth, however, breast MRI is recommended. This exam was interpreted at Station ID: [id number]. Electronically Signed By: Devin Rodriguez M.D. ddp/:04/07/2020 14:52:57 Ultrasound BI-RADS: 0 Indeterminate BI-RADS CATEGORY: (0) - 0 MRI [id number] Immediate follow-up LATERALITY: (B)
== END 2020-04-07 13:48 | disposition home or self-care (01) ==
LOC: DI 13:47
PROVIDERS: ATTEND Nurse Practitioner Family
DX: N64.52 Nipple discharge (principal)
CPT/HCPCS: 76642